=== PATIENT | male | born 1960 | race Caucasian/White ===

== ENCOUNTER 2022-03-29 15:28 | Emergency (ER) | payer OTHER ==
[2022-03-29 15:43] VITALS: BP 163/96; PULSE 99; RESP 18; TEMP 98.1; BMI 31.6
== END 2022-03-29 16:55 | disposition home or self-care (01) ==
LOC: JER 15:28 → JERFT 15:28
DX: S50.02XA Contusion of left elbow, initial encounter (principal); W07.XXXA Fall from chair, initial encounter
CPT/HCPCS: 73070-TC-RT-FY; 99283-25

== ENCOUNTER 2023-09-01 10:07 | Emergency (ER) | payer OTHER ==
[2023-09-01 10:26] VITALS: BP 156/99; PULSE 103; RESP 18; TEMP 98.6; BMI 31.3
== END 2023-09-01 11:34 | disposition home or self-care (01) ==
LOC: JERFT 10:07
DX: H10.33 Unspecified acute conjunctivitis, bilateral (principal); H57.13 Ocular pain, bilateral
CPT/HCPCS: 99283-25

== ENCOUNTER 2023-10-09 08:20 | Emergency (ER) | payer OTHER ==
[2023-10-09 08:35] VITALS: BP 158/102; PULSE 92; RESP 16; TEMP 97.7; BMI 32.5
[2023-10-09] MEDS ORDERED: KETOROLAC TROMETHAMINE 30 MG/1 ML VIAL ONE (09:29)
[2023-10-09] MEDS ORDERED: LIDOCAINE 4% PATCH TP ONE (09:29)
[2023-10-09] MEDS: LIDOCAINE 4% PATCH TP ONE (09:43)
[2023-10-09] MEDS: KETOROLAC TROMETHAMINE 30 MG/1 ML VIAL IM ONE (09:44)
[2023-10-09] MEDS ORDERED: LIDOCAINE PATCH REMOVAL MC SCH (22:00)
== END 2023-10-09 09:45 | disposition home or self-care (01) ==
LOC: JERFT 08:20
DX: S16.1XXA Strain of muscle, fascia and tendon at neck level, initial encounter (principal); Y04.8XXA Assault by other bodily force, initial encounter
CPT/HCPCS: 99283-25

== ENCOUNTER 2023-12-08 16:16 | Inpatient (IN) | payer OTHER ==
[2023-12-08 16:33] VITALS: BMI 32.8
[2023-12-08] MEDS ORDERED: ONDANSETRON 4 MG/2 ML VIAL ONE (17:27)
[2023-12-08] MEDS ORDERED: MAG HYDROX/AL HYDROX/SIMETH 30 ML UNIT-DOSE CUP ONE (17:27)
[2023-12-08] MEDS ORDERED: FAMOTIDINE 20 MG/50 ML IVPB 20 MG/50 ML MG IVPB ONE (17:27)
[2023-12-08] MEDS: ONDANSETRON 4 MG/2 ML VIAL IVPB ONE (17:51)
[2023-12-08] MEDS: FAMOTIDINE 20 MG/50 ML IVPB 20 MG/50 ML MG IVPB ONE (17:51)
[2023-12-08] MEDS ORDERED: ACETAMINOPHEN INJECTION 100 ML ONE (17:51)
[2023-12-08] MEDS: LACTATED RINGERS SOLUTION 1000 ML INFUS.BAG IV ONE (17:51)
[2023-12-08] MEDS: MAG HYDROX/AL HYDROX/SIMETH 30 ML UNIT-DOSE CUP PO ONE (17:51)
[2023-12-08 17:52] LABS: BASO % 0.6 % (0-2.0); EOS % 7.8 % (0-4.5); HEMATOCRIT 45.6 % (35.4-49); HEMOGLOBIN 15.6 GM/dL (11.7-16.9); LYMPH % 17.7 % (8-40); MCH 28.9 pg (25.7-33.7); MCHC 34.2 g/dl (32.0-35.9); MEAN CELL VOLUME 84.6 fl (80-96); MEAN PLT VOLUME 7.5 fl (7.5-11.1); MONO % 7.3 % (3.8-10.2); NEUT % 66.6 % (42.8-82.8); PLATELET COUNT 212 10^3/uL (134-434); RBC 5.39 M/mm3 (4.00-5.60); WHITE BLOOD COUNT 8.1 K/mm3 (4.0-10.0)
[2023-12-08] MEDS: ACETAMINOPHEN 1000 MG/100 ML BAG IVPB ONE (17:52)
[2023-12-08 18:13] LABS: POTASSIUM 4.3 mmol/L (3.5-5.1)
[2023-12-08 18:16] LABS: ALBUMIN 3.9 g/dl (3.4-5.0); CALCIUM 9.6 mg/dL (8.5-10.1)
[2023-12-08 18:17] LABS: MAGNESIUM 2.2 mg/dL (1.8-2.4)
[2023-12-08 18:20] LABS: CREATININE 0.9 mg/dL (0.55-1.3)
[2023-12-08 18:21] LABS: BILIRUBIN,TOTAL 0.6 mg/dL (0.2-1); TOT PROT 7.5 g/dl (6.4-8.2)
[2023-12-08] MEDS ORDERED: MORPHINE SULFATE 2 MG/ML SYRINGE ONE (19:30)
[2023-12-08] MEDS ORDERED: LOPERAMIDE HCL 2 MG CAPSULE ONE (19:30)
[2023-12-08] MEDS: morphine SULFATE 4 MG/ML VIAL IVPUSH ONE (19:56)
[2023-12-08] MEDS: LOPERAMIDE HCL 2 MG CAPSULE PO ONE (19:56)
[2023-12-08] MEDS ORDERED: ONDANSETRON 4 MG/2 ML VIAL IVPUSH PRN (22:52)
[2023-12-08] MEDS ORDERED: MORPHINE SULFATE 2 MG/ML SYRINGE IVPUSH PRN (23:00)
[2023-12-08] MEDS: SODIUM CHLORIDE 1,000 ML IV SCH (23:05)
[2023-12-09] MEDS ORDERED: chlordiazePOXIDE HCL 25 MG CAPSULE PO PRN (00:25)
[2023-12-09] MEDS: INSULIN ASPART SLIDING SCALE (NOVOLOG) 1 VIAL SQ SCH ×2 (04:36→06:35)
[2023-12-09] MEDS: chlordiazePOXIDE HCL 25 MG CAPSULE PO SCH (05:31)
[2023-12-09] MEDS: ACETAMINOPHEN 1000 MG/100 ML BAG IVPB PRN (05:42)
[2023-12-09 10:08] LABS: BASO % 0.3 % (0-2.0); EOS % 15.5 % (0-4.5); HEMATOCRIT 43.9 % (35.4-49); HEMOGLOBIN 14.6 GM/dL (11.7-16.9); LYMPH % 29.2 % (8-40); MCH 28.7 pg (25.7-33.7); MCHC 33.3 g/dl (32.0-35.9); MEAN CELL VOLUME 86.1 fl (80-96); MEAN PLT VOLUME 7.9 fl (7.5-11.1); MONO % 7.8 % (3.8-10.2); NEUT % 47.2 % (42.8-82.8); PLATELET COUNT 200 10^3/uL (134-434); RDW 12.9 % (11.9-15.9); WHITE BLOOD COUNT 6.3 K/mm3 (4.0-10.0)
[2023-12-09] MEDS: METOCLOPRAMIDE HCL 10 MG TABLET (FP) PO SCH (10:20)
[2023-12-09] MEDS: ENOXAPARIN NA (PORCINE) 40 MG/0.4 ML DISP.SYRIN SQ SCH (10:21)
[2023-12-09] MEDS: METOPROLOL TARTRATE 50 MG TABLET (FP) PO SCH (10:21)
[2023-12-09] MEDS: ASPIRIN 81 MG CHEWABLE TABLETS PO SCH (10:21)
[2023-12-09] MEDS: PANTOPRAZOLE 40 MG TABLET PO SCH (10:21)
[2023-12-09 10:34] LABS: POTASSIUM 3.7 mmol/L (3.5-5.1)
[2023-12-09 10:57] LABS: CALCIUM 8.4 mg/dL (8.5-10.1)
[2023-12-09 10:58] LABS: ALBUMIN 3.4 g/dl (3.4-5.0); MAGNESIUM 2.1 mg/dL (1.8-2.4)
[2023-12-09 10:59] LABS: BLOOD UREA NITROGEN 9.9 mg/dL (7-18)
[2023-12-09 11:01] LABS: CREATININE 0.6 mg/dL (0.55-1.3); PHOSPHOROUS 3.2 mg/dL (2.5-4.9)
[2023-12-09 11:02] LABS: BILIRUBIN,TOTAL 0.8 mg/dL (0.2-1); TOT PROT 6.6 g/dl (6.4-8.2)
[2023-12-09] MEDS: ACETAMINOPHEN 325 MG TABLET (FP) PO PRN (21:44)
[2023-12-09] MEDS ORDERED: MELATONIN 5 MG TABLETS PO PRN (22:11)
[2023-12-10 01:25] VITALS: RESP 18
[2023-12-10] MEDS ORDERED: chlordiazePOXIDE HCL 25 MG CAPSULE PO SCH (05:00)
[2023-12-10] MEDS: MAG HYDROX/AL HYDROX/SIMETH 30 ML UNIT-DOSE CUP PO PRN (12:35)
[2023-12-10 15:48] VITALS: BP 139/90; PULSE 88; TEMP 98.2
[2023-12-11] MEDS ORDERED: chlordiazePOXIDE HCL 10 MG CAPSULE PO PRN
[2023-12-11] MEDS ORDERED: chlordiazePOXIDE HCL 10 MG CAPSULE PO SCH (05:00)
[2023-12-12] MEDS ORDERED: chlordiazePOXIDE HCL 10 MG CAPSULE PO SCH (05:00)
[2023-12-13] MEDS ORDERED: chlordiazePOXIDE HCL 10 MG CAPSULE PO ONE (05:00)
== END 2023-12-10 18:01 | disposition home or self-care (01) | DRG 440 ==
LOC: JER 16:16 → JERBED 21:18 → OBSVTOIN 22:42 → J8W 12-09 01:49 → JERBED 12-09 17:57 → J8W 12-09 17:58 → JERBED 12-09 18:52 → J8W 12-09 18:53
PROVIDERS: ADMIT Internal Medicine; ATTEND Student in an Organized Health Care Education/Training Program
DX: K85.20 Alcohol induced acute pancreatitis without necrosis or infection (principal); F10.10 Alcohol abuse, uncomplicated; E11.65 Type 2 diabetes mellitus with hyperglycemia; I10 Essential (primary) hypertension
CPT/HCPCS: 36415; 74177-TC; 76705-TC; 80053; 80061; 82962; 83036; 83605; 83690; 83735; 84100; 85025; 93005; 93010; 99285-25; G0378; J0131; Q9967

== ENCOUNTER 2023-12-13 17:00 | Inpatient (IN) | payer OTHER ==
[2023-12-13 17:10] VITALS: BMI 31.0
[2023-12-13] MEDS: ONDANSETRON 4 MG/2 ML VIAL IVPUSH ONE (18:11)
[2023-12-13] MEDS: SODIUM CHLORIDE 0.9% 1000 ML INFUS.BAG IV ONE (18:11)
[2023-12-13] MEDS: ACETAMINOPHEN 1000 MG/100 ML BAG IVPB ONE (18:11)
[2023-12-13] MEDS ORDERED: ONDANSETRON 4 MG/2 ML VIAL ONE (18:15)
[2023-12-13] MEDS ORDERED: ACETAMINOPHEN INJECTION 100 ML ONE (18:16)
[2023-12-13 18:48] LABS: BASO % 0.4 % (0-2.0); EOS % 8.3 % (0-4.5); HEMATOCRIT 48.1 % (35.4-49); HEMOGLOBIN 16.5 GM/dL (11.7-16.9); LYMPH % 26.1 % (8-40); MCH 29.2 pg (25.7-33.7); MCHC 34.3 g/dl (32.0-35.9); MEAN CELL VOLUME 85.2 fl (80-96); MEAN PLT VOLUME 7.8 fl (7.5-11.1); MONO % 6.8 % (3.8-10.2); NEUT % 58.4 % (42.8-82.8); PLATELET COUNT 236 10^3/uL (134-434); RBC 5.64 M/mm3 (4.00-5.60); VENOUS BASE EXCESS -2.2 mmol/L (-2-2); VENOUS O2 SATURATION 57.3 % (70-80); VENOUS PCO2 49.5 mmHg (38-52); VENOUS PH 7.315 (7.310-7.410); WHITE BLOOD COUNT 5.4 K/mm3 (4.0-10.0)
[2023-12-13 19:01] LABS: INR 1.15 (0.83-1.09); PROTHROMBIN TIME (PATIENT) 12.9 SEC (9.7-13.0)
[2023-12-13 19:04] LABS: ACTIVATED PTT 31.2 SECONDS (25.2-36.5)
[2023-12-13 19:12] LABS: POTASSIUM 3.6 mmol/L (3.5-5.1)
[2023-12-13 19:15] LABS: ALBUMIN 3.9 g/dl (3.4-5.0); CALCIUM 9.1 mg/dL (8.5-10.1)
[2023-12-13 19:16] LABS: BLOOD UREA NITROGEN 15.4 mg/dL (7-18)
[2023-12-13 19:20] LABS: CREATININE 0.8 mg/dL (0.55-1.3)
[2023-12-13 19:21] LABS: BILIRUBIN,TOTAL 0.7 mg/dL (0.2-1); TOT PROT 7.6 g/dl (6.4-8.2)
[2023-12-13] MEDS ORDERED: MORPHINE SULFATE 2 MG/ML SYRINGE ONE ×2 (19:33→22:33)
[2023-12-13] MEDS: morphine CARPU-JECT 2 MG/1 ML DISP.SYRIN IVPUSH ONE (19:42)
[2023-12-13] MEDS: LACTATED RINGERS SOLUTION 1000 ML INFUS.BAG IV ONE (19:43)
[2023-12-13] MEDS ORDERED: FAMOTIDINE 20 MG TABLET ONE (21:58)
[2023-12-13] MEDS ORDERED: MAG HYDROX/AL HYDROX/SIMETH 30 ML UNIT-DOSE CUP ONE (21:58)
[2023-12-13] MEDS ORDERED: KETOROLAC TROMETHAMINE 30 MG/1 ML VIAL ONE (21:58)
[2023-12-13] MEDS: KETOROLAC TROMETHAMINE 30 MG/1 ML VIAL IVPUSH ONE (22:06)
[2023-12-13] MEDS: FAMOTIDINE 20 MG TABLET PO ONE (22:07)
[2023-12-13] MEDS: MAG HYDROX/AL HYDROX/SIMETH 30 ML UNIT-DOSE CUP PO ONE (22:07)
[2023-12-13] MEDS: morphine CARPU-JECT 4 MG/1 ML DISP.SYRIN IVPUSH ONE (22:45)
[2023-12-13] MEDS ORDERED: ONDANSETRON 4 MG/2 ML VIAL IVPUSH PRN (23:40)
[2023-12-14] MEDS ORDERED: MORPHINE SULFATE 2 MG/ML SYRINGE IVPUSH PRN (00:55)
[2023-12-14] MEDS: INSULIN ASPART SLIDING SCALE (NOVOLOG) 1 VIAL SQ SCH (01:40)
[2023-12-14] MEDS: SODIUM CHLORIDE 1,000 ML IV SCH ×2 (01:40→10:06)
[2023-12-14] MEDS: FOLIC ACID 1 MG TABLET (FP) PO SCH (10:06)
[2023-12-14] MEDS: THIAMINE 100 MG TABLET PO SCH (10:06)
[2023-12-14] MEDS: CYANOCOBALAMIN 1,000 MCG TABLET (FP) PO ONE (10:06)
[2023-12-14 10:29] LABS: HEMATOCRIT 44.6 % (35.4-49); HEMOGLOBIN 15.8 GM/dL (11.7-16.9); MCH 29.9 pg (25.7-33.7); MCHC 35.4 g/dl (32.0-35.9); MEAN CELL VOLUME 84.5 fl (80-96); MEAN PLT VOLUME 7.8 fl (7.5-11.1); PLATELET COUNT 218 10^3/uL (134-434); RBC 5.28 M/mm3 (4.00-5.60); RDW 13.3 % (11.9-15.9); WHITE BLOOD COUNT 6.5 K/mm3 (4.0-10.0)
[2023-12-14 11:37] LABS: CHOLESTEROL 136 mg/dL (50-200)
[2023-12-14 11:39] LABS: LDL CHOLESTEROL (ONLY SJRH) 90 mg/dL (5-100)
[2023-12-14 11:41] LABS: HDL CHOLESTEROL 32 mg/dL (40-60)
[2023-12-14 11:59] LABS: POTASSIUM 3.8 mmol/L (3.5-5.1)
[2023-12-14 12:03] LABS: MAGNESIUM 2.2 mg/dL (1.8-2.4)
[2023-12-14 12:04] LABS: CALCIUM 8.5 mg/dL (8.5-10.1)
[2023-12-14 12:05] LABS: ALBUMIN 3.4 g/dl (3.4-5.0); BLOOD UREA NITROGEN 14.4 mg/dL (7-18)
[2023-12-14 12:06] LABS: CREATININE 0.7 mg/dL (0.55-1.3)
[2023-12-14 12:07] LABS: PHOSPHOROUS 3.3 mg/dL (2.5-4.9)
[2023-12-14 12:08] LABS: TOT PROT 6.7 g/dl (6.4-8.2)
[2023-12-14 12:09] LABS: BILIRUBIN,TOTAL 0.7 mg/dL (0.2-1)
[2023-12-14] MEDS: ENOXAPARIN NA (PORCINE) 40 MG/0.4 ML DISP.SYRIN SQ SCH (14:27)
[2023-12-15 10:21] LABS: POTASSIUM 4.1 mmol/L (3.5-5.1)
[2023-12-15 10:23] LABS: CALCIUM 8.8 mg/dL (8.5-10.1)
[2023-12-15 10:24] LABS: ALBUMIN 3.2 g/dl (3.4-5.0); BLOOD UREA NITROGEN 10.4 mg/dL (7-18)
[2023-12-15 10:27] LABS: CREATININE 0.6 mg/dL (0.55-1.3)
[2023-12-15 10:28] LABS: BILIRUBIN,TOTAL 0.7 mg/dL (0.2-1); CHOLESTEROL 129 mg/dL (50-200); TOT PROT 6.3 g/dl (6.4-8.2)
[2023-12-15 10:29] LABS: HDL CHOLESTEROL 31 mg/dL (40-60); LDL CHOLESTEROL (ONLY SJRH) 82 mg/dL (5-100)
[2023-12-15 12:03] VITALS: TEMP 97.9
[2023-12-15 12:16] VITALS: BP 131/31; PULSE 75; RESP 18
[2023-12-15] MEDS: PANTOPRAZOLE 40 MG TABLET PO SCH (14:21)
== END 2023-12-15 15:44 | disposition home or self-care (01) | DRG 440 ==
LOC: JER 17:00 → JERBED 12-14 00:17 → OBSVTOIN 12-14 00:50 → J6S 12-14 05:31
PROVIDERS: ADMIT Student in an Organized Health Care Education/Training Program; ATTEND Internal Medicine
PROC: 0DB68ZX Excision of Stomach, Via Natural or Artificial Opening Endoscopic, Diagnostic (ICD-10-PCS; 2023-12-15)
PROC: 0DB98ZX Excision of Duodenum, Via Natural or Artificial Opening Endoscopic, Diagnostic (ICD-10-PCS; principal; 2023-12-15 10:30)
DX: K85.20 Alcohol induced acute pancreatitis without necrosis or infection (principal); I48.0 Paroxysmal atrial fibrillation; I10 Essential (primary) hypertension; J45.909 Unspecified asthma, uncomplicated; Z79.84 Long term (current) use of oral hypoglycemic drugs; E11.65 Type 2 diabetes mellitus with hyperglycemia; K29.80 Duodenitis without bleeding; K29.70 Gastritis, unspecified, without bleeding
CPT/HCPCS: 36415; 74181-TC; 76705-TC; 80053; 80061; 80307; 82803; 82962; 83690; 83735; 84100; 84484; 85025; 85027; 85610; 85730; 86850; 86900; 86901; 88305-TC; 88341-TC; 88342-TC; 93005; 93010; 99285-25; G0378; J0131